=== PATIENT | male | born 1950 | race Caucasian/White ===

== ENCOUNTER 2018-09-11 05:37 | Inpatient (IN) | payer MEDICARE, BC ==
[~2018-09-11] VITALS: Ht 177.8 cm; Wt 75.6 kg
[2018-09-11] MEDS ORDERED: FOSAMAX 70MG TA70 MG PO (05:46)
[2018-09-11 06:02] LABS: BASO % 0.2 % (0.0-2.0); EOS % 0.1 % (0-4.0); GRAN # 13.9 (1.4-6.5); GRAN % 85.1 % (42.2-75.2); HEMATOCRIT 38.2 % (42.0-52.0); HEMOGLOBIN 13.3 g/dl (13.5-18.0); LYMPH % 5.8 % (20.0-51.0); MEAN CELL VOLUME 90 fl (80.0-100.0); MEAN CORPUSCULAR HEMOGLOBIN 31 pg (27.0-31.0); MEAN CORPUSCULAR HGB CONC 35 g/dl (33.0-37.0); MEAN PLATELET VOLUME 10.2 fl (7.4-10.4); MONO # 1.4 (0.1-0.6); MONO % 8.3 % (1.7-9.3); PLATELET COUNT 151 K/mm3 (130-400); RED BLOOD COUNT 4.25 M/mm3 (4.20-5.60); REDCELL DISTRIBUTION WIDTH-CV 12.4 % (11.5-14.5)
[2018-09-11 06:16] LABS: ALANINE AMINOTRANSFERASE 19 U/L (21-72); ALKALINE PHOSPHATASE 57 U/L (50-136); ANION GAP 7 mmol/L (7-16); AST,SGOT 22 U/L (15-37); BILIRUBIN,TOTAL 1.5 mg/dL (0.0-1.0); BLOOD UREA NITROGEN 16 mg/dL (9-20); CALCIUM 8.9 mg/dL (8.4-10.2); CARBON DIOXIDE 26 mmol/L (22-30); CHLORIDE 104 mmol/L (98-107); CREATININE, serum 0.88 mg/dL (0.66-1.25); GLUCOSE 152 mg/dL (74-106); POTASSIUM 4.1 mmol/L (3.4-5.0); SODIUM 137 mmol/L (137-145); TOTAL PROTEIN 7.3 gm/dL (6.4-8.2)
[2018-09-11 06:27] LABS: TROPONIN-I < 0.012 ng/mL (0.000-0.034)
[2018-09-11 06:32] LABS: MUCOUS Present /lpf; PH 6 (5-8); SQUAMOUS EPITHELIAL 0-2 /hpf; URINE APPEARANCE Clear; URINE BACTERIA None Seen /hpf; URINE BILIRUBIN Negative (NEGATIVE); URINE BLOOD Negative (NEGATIVE); URINE COLOR Amber; URINE GLUCOSE Negative (NEGATIVE); URINE KETONE Trace (NEGATIVE); URINE LEUKOCYTE ESTERASE Negative (NEGATIVE); URINE NITRATE Negative (NEGATIVE); URINE PROTEIN(semi-quant) 2+ (NEGATIVE); URINE RBC 0-2 /hpf; URINE UROBILINOGEN Negative (NEGATIVE)
[2018-09-11 12:57] LABS: COLLECTION METHOD CLEAN CATCH
--- NOTE | 2018-09-11 14:54 | NUR ---
Pt arrived to room 306 via cart with ED staff. Pt able to transfer from the cart to the floor bed with the assistance of one. Pt oriented to room and call light system. Will complete assessment. Pt is sitting up in the bed and he denies further needs. Call light within reach, will continue to monitor.
[2018-09-11 17:18] VITALS: BP 121/62; PULSE 76; TEMP 100
--- NOTE | 2018-09-11 19:17 | NUR ---
Since arriving to the floor the pt has been resting on and off. He has had a constant pain in his lower back; pain medication administered on NOV. Pt's has been at the bedside; all questions answered. Pt is resting quietly in the bed at this time and he denies further needs. Call light within reach. Report given to LG Doss.
--- NOTE | 2018-09-11 19:20 | NUR ---
Patient resting in bed, given IV morphine by LG Cuello at 1905. Assessment completed. States pain is controlled at this time with the morphine. Patient can have every 2 hours. Left great toe redenned. No other needs at this time.
[2018-09-11 21:03] VITALS: BP 130/65; PULSE 73; TEMP 100.4
--- NOTE | 2018-09-11 21:19 | NUR ---
Patient resting in bed, states most of the back pain is gone right now. C/O headache at this time- has been on/off all day. Does not want anything for pain at this time.
--- NOTE | 2018-09-11 23:30 | NUR ---
Patient sleeping, IVF infusing at this time.
[2018-09-12 00:18] VITALS: BP 138/60; PULSE 72; TEMP 99.8
--- NOTE | 2018-09-12 00:29 | NUR ---
Patient standing up with SBA, feeling nauseated. Given IV zofran. Returned to bed. States pain is manageable at this time and does not want anything. Patient states he will let this nurse know when he is ready for pain medication.
--- NOTE | 2018-09-12 02:38 | NUR ---
Blood culture results positive to staph. aureus. SIRENA Ledesma notified and orders to start 1 g vancomycin given. Discussed with patient administration of vanco. Patient aware. After beginning IV medication administration patient went back to sleep.
[2018-09-12 03:14] VITALS: BP 131/59; PULSE 66; TEMP 98
--- NOTE | 2018-09-12 05:35 | NUR ---
Patient slept on/off throughout the night. Pain controlled with 2 mg IV morphine. Administered twice this shift. Vanco was given last night for postiive blood culture of staph. aureus. Vitals stable, temperature trended down. No other needs at this time.
[2018-09-12 06:44] LABS: BASO % 0.1 % (0.0-2.0); GRAN # 11.1 (1.4-6.5); GRAN % 87.8 % (42.2-75.2); HEMOGLOBIN 12.2 g/dl (13.5-18.0); LYMPH # 0.5 (1.2-3.4); LYMPH % 4.1 % (20.0-51.0); MEAN CELL VOLUME 92 fl (80.0-100.0); MEAN CORPUSCULAR HEMOGLOBIN 32 pg (27.0-31.0); MEAN CORPUSCULAR HGB CONC 35 g/dl (33.0-37.0); MEAN PLATELET VOLUME 10.9 fl (7.4-10.4); MONO # 0.9 (0.1-0.6); MONO % 7.2 % (1.7-9.3); PLATELET COUNT 126 K/mm3 (130-400); RED BLOOD COUNT 3.85 M/mm3 (4.20-5.60); REDCELL DISTRIBUTION WIDTH-CV 12.4 % (11.5-14.5)
[2018-09-12 06:48] LABS: HEMATOCRIT 35.3 % (42.0-52.0)
[2018-09-12 06:59] LABS: CALCIUM 7.8 mg/dL (8.4-10.2); CREATININE, serum 0.92 mg/dL (0.66-1.25); POTASSIUM 4.2 mmol/L (3.4-5.0)
--- NOTE | 2018-09-12 07:18 | NUR ---
Resting in bed now. No pain or needs reported when asked, but the patient does moan when moving slightly on the bed. Will continue to ask about PRN pain medications. Currently, does not want anything for pain. The call light is in reach. Will continue to monitor.
[2018-09-12 07:19] VITALS: BP 126/57; PULSE 66; TEMP 98.6
[2018-09-12 07:38] LABS: C-REACTIVE PROTEIN 23.9 mg/dL (0.0-0.9)
--- NOTE | 2018-09-12 09:56 | NUR ---
LAWRENCE met with the patient and patient's , December, to discuss discharge plan. The patient lives in [place] with his . He reports independence with ADLs and has a cane and crutches. The patient's PCP is Dr. Bhumika Haywood and he receives his medications at the [facility]. He reports no difficulties obtaining his meds. The patient does not have advanced directives, but he states that he has the paperwork at home and plans to fill them out. The patient plans to return home with his upon discharge. No additional needs at this time.
--- NOTE | 2018-09-12 11:37 | NUR ---
Transferring to [facility] to be seen for further workup. INT cleaned and redressed and the is at the bedside. Plan to transport via EMS.
[2018-09-12 11:56] VITALS: BP 126/57; PULSE 66; TEMP 98.6
--- NOTE | 2018-09-12 12:12 | NUR ---
Initial visit; Patient and his thanked Carton Stenciler for looking in on him and wishing him well. Patient is being transferred to another hospital. Carton Stenciler will keep Pavel in her prayers.
--- NOTE | 2018-09-12 12:14 | NUR ---
Left via EMS at this time. to drive and met the patient.
== END 2018-09-12 12:14 | disposition short-term general hospital (02) | DRG 872 ==
LOC: COL.ER 05:37 → MEDICAL 09:14
PROVIDERS: Emergency Medicine; Physician Assistant; ADMIT Student in an Organized Health Care Education/Training Program
DX: A41.01 Sepsis due to Methicillin susceptible Staphylococcus aureus (principal); M46.57 Other infective spondylopathies, lumbosacral region; M10.9 Gout, unspecified; M1A.9XX0 Chronic gout, unspecified, without tophus (tophi); M81.0 Age-related osteoporosis without current pathological fracture; B95.61 Methicillin susceptible Staphylococcus aureus infection as the cause of diseases classified elsewhere
CPT/HCPCS: 99223-AI; 99239; A9585; G0378; G8978-GP; G8979-GP; J1170; J1650; J1885; J2270; J2360; J2405; J3370; J7030; J7050

== ENCOUNTER → 2018-09-22 | Outpatient (CLI) | payer MEDICARE, BC ==
[~2018-09-22] MED LIST: FOSAMAX 70MG TA70 MG PO
== END ==
LOC: COL.RAD 14:19
DX: M79.604 Pain in right leg (principal)

== ENCOUNTER 2022-02-05 17:30 | Inpatient (IN) | payer MEDICARE, BC ==
[~2022-02-05] VITALS: Ht 177.8 cm; Wt 87.6 kg
[2022-02-05] MEDS ORDERED: PRILOSEC 20MG20 MG PO (18:54)
[2022-02-05] MEDS ORDERED: MEDROL 4MG DOSPA4 MG PO (18:55)
[2022-02-05] MEDS ORDERED: ULTRAM 50MG TAB50 MG PO (18:55)
[2022-02-05] MEDS ORDERED: FLEXERIL 1010 MG/TAB PO (18:55)
[2022-02-05 19:24] LABS: COLLECTION METHOD CLEAN CATCH
[2022-02-05 19:27] LABS: HEMATOCRIT 44.9 % (42.0-52.0); HEMOGLOBIN 15.6 g/dl (13.5-18.0); MEAN CELL VOLUME 90 fl (80.0-100.0); MEAN CORPUSCULAR HEMOGLOBIN 31 pg (27-31); MEAN CORPUSCULAR HGB CONC 35 g/dl (33.0-37.0); MEAN PLATELET VOLUME 10.6 fl (7.4-10.4); PLATELET COUNT 235 K/mm3 (130-400); RED BLOOD COUNT 5.01 M/mm3 (4.20-5.60); REDCELL DISTRIBUTION WIDTH-CV 12.7 % (11.5-14.5)
[2022-02-05 19:32] LABS: MUCOUS Present (NOT PRESENT); PH 7 (5-8); SQUAMOUS EPITHELIAL 0-2 /hpf (0-10); URINE APPEARANCE Hazy (CLEAR/HAZY); URINE BACTERIA Occasional /hpf (NONE SEEN); URINE BILIRUBIN Negative (NEGATIVE); URINE BLOOD Negative (NEGATIVE); URINE COLOR Yellow (YELLOW); URINE GLUCOSE Negative (NEGATIVE); URINE KETONE Negative (NEGATIVE); URINE LEUKOCYTE ESTERASE Negative (NEGATIVE); URINE NITRATE Negative (NEGATIVE); URINE PROTEIN(semi-quant) 1+ (NEGATIVE); URINE UROBILINOGEN Negative (NEGATIVE)
[2022-02-05 19:48] LABS: ALBUMIN 3.3 gm/dL (3.4-4.8); BILIRUBIN,TOTAL 0.8 mg/dL (0.2-1.2); C-REACTIVE PROTEIN 23.93 mg/dL (0.00-0.50); CALCIUM 9.3 mg/dL (8.4-10.2); CREATININE, serum 1.04 mg/dL (0.72-1.25); POTASSIUM 4.2 mmol/L (3.5-4.5); TOTAL PROTEIN 7.7 gm/dL (6.2-8.1)
[2022-02-05 20:16] LABS: BAND 7 % (0-10); LYMPHOCYTE 16 % (20.0-51.0); NEUTROPHILS 73 % (42.0-75.2); PLATELET ESTIMATE NORMAL (NORMAL)
[2022-02-05 20:17] LABS: ERYTHROCYTE SEDIMENTATION RATE 37 mm/hr (0-30)
[2022-02-06 07:50] LABS: HEMATOCRIT 41.3 % (42.0-52.0); HEMOGLOBIN 14.3 g/dl (13.5-18.0); MEAN CELL VOLUME 90 fl (80.0-100.0); MEAN CORPUSCULAR HEMOGLOBIN 31 pg (27-31); MEAN CORPUSCULAR HGB CONC 35 g/dl (33.0-37.0); MEAN PLATELET VOLUME 10.4 fl (7.4-10.4); PLATELET COUNT 200 K/mm3 (130-400); REDCELL DISTRIBUTION WIDTH-CV 12.7 % (11.5-14.5)
[2022-02-06 08:09] LABS: CALCIUM 8.4 mg/dL (8.4-10.2); CREATININE, serum 0.83 mg/dL (0.72-1.25); POTASSIUM 4.4 mmol/L (3.5-4.5)
[2022-02-06 08:17] LABS: EOSINOPHIL 2 % (0-4); LYMPHOCYTE 8 % (20.0-51.0); PLATELET ESTIMATE NORMAL (NORMAL)
[2022-02-06 08:18] LABS: BAND 6 % (0-10)
[2022-02-06 08:19] LABS: NEUTROPHILS 78 % (42.0-75.2)
[2022-02-06 10:32] VITALS: BP 165/79; PULSE 56; TEMP 98.9
[2022-02-06] MEDS ORDERED: TYLENOL 500MG500 MG PO (10:55)
[2022-02-06] MEDS ORDERED: MOTRIN 800800 MG/TAB PO (10:56)
--- NOTE | 2022-02-06 11:05 | NUR ---
ADMISSION INTAKE AND ASSESSMENT COMPLETED. MED REC UPDATED. PT ORIENTED TO ROOM, AT BEDSIDE. PT COMPLAINING OF LOWER BACK, R HIPS, AND RLE PAIN. PRN MEDICATION GIVEN PER eMAR. CURRENTLY ON 2L VIA NC. REPORTS A RESTRICTED ROM IN RUE. DENIED ANY NEEDS AT THIS TIME. WILL CONTINUE TO MONITOR.
--- NOTE | 2022-02-06 13:26 | NUR ---
Vancomycin Initial Dosing Pharmacy Note Ordering provider: Eric Massey MD Indication/duration: Lumbar spinal facet infection Relevant comorbidities: h/o MSSA facet infection in 2018 LABS: SCr 0.83 Recommendation: Give Vancomycin 1.5 gm IV x1 loading dose, then Vancomycin 1 gm IV q8h. Pharmacy will continue to closely monitor. Loading dose: 1.5 grams Maintenance dose: 1 gram every 8 hours Trough goal: 15-20 ug/mL
[2022-02-06 15:12] VITALS: BP 168/79; PULSE 56; TEMP 97.6
[2022-02-06 20:17] VITALS: BP 151/74; PULSE 60; TEMP 97.6
--- NOTE | 2022-02-06 20:30 | NUR ---
Initial shift assessment done- VSS, states back pain 01/07-would like the second Roxicodone at this time, Up in room, steady on feet. Will be NPO after MN for MRI in am
--- NOTE | 2022-02-06 22:00 | NUR ---
Went to patients room- pt had pulled out IV- states it was all tangled up, had spilled his water all over the floor and bed- states he is in so much back pain 07/09-- Thao PEMBERTON called- New IV started to right hand- given Dilaudid IV and Zofran IV for nausea.
[2022-02-07 00:20] VITALS: BP 172/83; PULSE 62; TEMP 98.2
--- NOTE | 2022-02-07 00:45 | NUR ---
Pt remains restless, Up out of bed, walking in the chris- remains confused- thinks hes at home- back to bed, bed alarm on- denies pain ?but cannot seem to get comfortable-- will give Flexeril at this time.
[2022-02-07 03:47] VITALS: BP 155/72; PULSE 69; TEMP 99.3
--- NOTE | 2022-02-07 05:15 | NUR ---
Has been up and down all night- cant get comfortable- needs to standup,, VSS, voiding ok throughout the night-- NPO after MN, called scott PEMBERTON is aware of his confusion tonight- states ok to try the Ativan that is already ordered- will give Ativan at this time time to help with restlessness-
--- NOTE | 2022-02-07 06:10 | NUR ---
Pt still getting out of bed- moaning in pain- cant get comfortable- when asked pt denies need for pain meds- remains confused- thinks he is at home-- will give Dilaudid IV at this time to see if that is effective.
[2022-02-07 06:19] LABS: HEMATOCRIT 40.2 % (42.0-52.0); HEMOGLOBIN 13.5 g/dl (13.5-18.0); MEAN CELL VOLUME 92 fl (80.0-100.0); MEAN CORPUSCULAR HEMOGLOBIN 31 pg (27-31); MEAN CORPUSCULAR HGB CONC 34 g/dl (33.0-37.0); MEAN PLATELET VOLUME 10.7 fl (7.4-10.4); PLATELET COUNT 210 K/mm3 (130-400); RED BLOOD COUNT 4.37 M/mm3 (4.20-5.60); REDCELL DISTRIBUTION WIDTH-CV 12.3 % (11.5-14.5)
--- NOTE | 2022-02-07 07:21 | NUR ---
PT OFF OF UNIT FOR MRI AT THIS TIME.
[2022-02-07 07:24] LABS: EOSINOPHIL 1 % (0-4); LYMPHOCYTE 16 % (20.0-51.0); MYELOCYTE 1 % (0-0); NEUTROPHILS 77 % (42.0-75.2)
[2022-02-07 07:25] LABS: TEAR DROP CELLS 1+
--- NOTE | 2022-02-07 07:49 | NUR ---
PT BACK ON UNIT AT THIS TIME, RESTLESSLY LAYING IN BED. MORNING MEDICATIONS GIVEN. SHIFT ASSESSMENT COMPLETED. PT MOANING IN PAIN. PAIN MEDICATION GIVEN PER eMAR. CURRENTLY ON ROOM AIR. WILL CONTINUE TO MONITOR.
[2022-02-07 08:06] VITALS: BP 133/68; PULSE 57; TEMP 99.4
[2022-02-07 11:06] VITALS: BP 188/75; PULSE 67; TEMP 98.9
--- NOTE | 2022-02-07 11:28 | NUR ---
LAWRENCE met with the patient and his , December (ph#[phone]), to discuss discharge plan. The patient lives in [place] with his . He reports independence with ADLs and does not have any DME. The patient's PCP is Dr. Bhumika Haywood and he receives his medications from [facility]. The patient does not have a DPOA-HC, but his was interested in a form. LAWRENCE provided. The patient plans on returning home with his upon discharge. His states that the doctors are looking at possibly transferring him to [facility]. PT is recommending outpatient PT. December states that they would be interested in outpatient PT, once the patient is doing better. They would be interested in outpatient PT at [facility] on [address]. *Discharge plan: home with and outpatient PT*
[2022-02-07 13:20] LABS: HIV 1/2 Antibodies Non-Reactive; HIV-1p24 Antigen Non-Reactive
--- NOTE | 2022-02-07 13:30 | NUR ---
First visit from the upper extremity surgeon. No needs right now.
[2022-02-07 15:20] VITALS: BP 164/80; PULSE 73; TEMP 98.5
[2022-02-07 20:53] VITALS: BP 164/78; PULSE 75; TEMP 99.4
--- NOTE | 2022-02-07 21:46 | NUR ---
AAO TO SELF WAX AND WANE TO PLACE. AT BEDSIDE UPDATED ON PATIENT BEING TRANSFERRING TO [facility] GAVE REPORT TO RECIEVING NURSE. PROVIDED PAIN MEDICATION NEEDED THROUGHOUT SHIFT, PATIENT DOESN'T SEEM TO GET COMPLETE RELIEF FROM PAIN TOSSING AND TURNING IN BED TRYING TO PROVIDED WARM BLANKET TO BACK TO ASSIST WITH PATIENT REPOSITIONING WITH PILLOWS. PROVIDED MOUTH CARE THIS EVENING. ENCOURAGING FLUIDS WHILE AWAKE. CONTINUES ON IV ABX THERAPY. WILL CONTINUE TO MONITOR PATIENT. ETA OF TRANSPORATION 2300.
--- NOTE | 2022-02-07 22:45 | NUR ---
PATIENT TRANSFERRED VIA EMS ON STRETCHER PAPERWORK PROVIDED, PREMEDICATED PATIENT FOR PAIN PRIOR TO LEAVING. INFORMED OF ROOM NUMBER AT [facility] AND PATIENT BELONGINGS SENT HOME WITH .
== END 2022-02-07 22:45 | disposition short-term general hospital (02) | DRG 540 ==
LOC: COL.ER 17:30 → MEDICAL 22:48
PROVIDERS: Emergency Medicine; Internal Medicine; Physician Assistant; Student in an Organized Health Care Education/Training Program; ADMIT Family Medicine
DX: M46.36 Infection of intervertebral disc (pyogenic), lumbar region (principal); B37.0 Candidal stomatitis; N20.0 Calculus of kidney; K76.0 Fatty (change of) liver, not elsewhere classified; M71.38 Other bursal cyst, other site; K21.9 Gastro-esophageal reflux disease without esophagitis; M10.9 Gout, unspecified; D72.829 Elevated white blood cell count, unspecified; Z79.891 Long term (current) use of opiate analgesic
CPT/HCPCS: 99223-AI; 99233-AI; 99239; A9575; J0696; J1170; J1450; J1650; J1885; J2060; J2270; J2405; J3370; J7030; J7050; Q9967

== ENCOUNTER 2022-03-05 13:56 | Outpatient (CLI) | payer MEDICARE, BC ==
[~2022-03-05 13:56] MED LIST changes: +FLEXERIL 1010 MG/TAB PO; +MEDROL 4MG DOSPA4 MG PO; +MOTRIN 800800 MG/TAB PO; +PRILOSEC 20MG20 MG PO; +TYLENOL 500MG500 MG PO; +ULTRAM 50MG TAB50 MG PO
[2022-03-05] MEDS ORDERED: FLOMAX 0.40.4 MG/CAP PO (14:05)
[2022-03-05] MEDS ORDERED: ROCEPHIN 2GM VIAL21 IJ (14:06)
[2022-03-05 14:07] VITALS: BP 156/77; PULSE 75; TEMP 97.7
[2022-03-05] MEDS ORDERED: NORVASC 5MG5 MG/TAB PO (14:07)
--- NOTE | 2022-03-05 14:15 | NUR ---
Patient here for a PICC evaluation. PICC intact left upper arm. Flushed with 60ml normal saline without difficulty or resistance. Unable to obtain a blood return. Performed arm manipulation along with coughing and still no blood return noted. EU nurse contacted physician and to obtain orders. Chest x ray done. PICC tip location in lower SVC. EU RN will instil cath-donnie.
[2022-03-05 16:01] LABS: BASO % 0.5 % (0.0-2.0); EOS # 0.3 K/mm3 (0.0-0.7); GRAN # 3.3 K/mm3 (1.4-6.5); GRAN % 52.6 % (42.2-75.2); LYMPH % 31.6 % (20.0-51.0); MEAN CELL VOLUME 89 fl (80.0-100.0); MEAN CORPUSCULAR HEMOGLOBIN 32 pg (27-31); MEAN CORPUSCULAR HGB CONC 36 g/dl (33.0-37.0); MEAN PLATELET VOLUME 9.3 fl (7.4-10.4); MONO # 0.7 K/mm3 (0.1-0.6); MONO % 10.5 % (1.7-9.3); PLATELET COUNT 229 K/mm3 (130-400); RED BLOOD COUNT 3.78 M/mm3 (4.20-5.60); REDCELL DISTRIBUTION WIDTH-CV 14.2 % (11.5-14.5)
[2022-03-05 16:03] LABS: HEMATOCRIT 33.5 % (42.0-52.0)
--- NOTE | 2022-03-05 16:10 | NUR ---
Blood return obtained from PICC line following 30 min dwell time of cathflo. Line flushed per protocol. Labs drawn per orders. Pt ambulates out of dept with upon completion.
[2022-03-05 16:18] LABS: ALBUMIN 3.2 gm/dL (3.4-4.8); BILIRUBIN,TOTAL 0.4 mg/dL (0.2-1.2); C-REACTIVE PROTEIN 0.31 mg/dL (0.00-0.50); CALCIUM 9.2 mg/dL (8.4-10.2); CREATININE, serum 0.81 mg/dL (0.72-1.25); POTASSIUM 3.9 mmol/L (3.5-4.5); TOTAL PROTEIN 7.7 gm/dL (6.2-8.1)
== END 2022-03-05 16:30 | disposition home or self-care (01) ==
LOC: EUO 13:56
PROVIDERS: Family Medicine
DX: Z45.2 Encounter for adjustment and management of vascular access device (principal); M60.08 Infective myositis, other site; M86.9 Osteomyelitis, unspecified
CPT/HCPCS: J2997

== ENCOUNTER → 2022-11-07 | Outpatient (CLI) | payer MEDICARE, BC ==
[~2022-11-07] MED LIST changes: +FLOMAX 0.40.4 MG/CAP PO; +NORVASC 5MG5 MG/TAB PO; +ROCEPHIN 2GM VIAL21 IJ
[2022-11-07 13:17] LABS: BAND 16 % (0-10); EOSINOPHIL 1 % (0-4); HEMATOCRIT 39.6 % (42.0-52.0); HEMOGLOBIN 13.2 g/dl (13.5-18.0); LYMPHOCYTE 19 % (20.0-51.0); MEAN CELL VOLUME 95 fl (80.0-100.0); MEAN CORPUSCULAR HEMOGLOBIN 32 pg (27-31); MEAN CORPUSCULAR HGB CONC 33 g/dl (33.0-37.0); MEAN PLATELET VOLUME 10.8 fl (7.4-10.4); PLATELET COUNT 110 K/mm3 (130-400); RED BLOOD COUNT 4.17 M/mm3 (4.20-5.60); REDCELL DISTRIBUTION WIDTH-CV 14.2 % (11.5-14.5)
[2022-11-07 13:18] LABS: METAMYELOCYTE 5 % (0-0); NEUTROPHILS 55 % (42.0-75.2); PLATELET ESTIMATE NORMAL (NORMAL)
[2022-11-07 13:22] LABS: ALBUMIN 2.7 gm/dL (3.4-4.8); BILIRUBIN,TOTAL 0.4 mg/dL (0.2-1.2); CALCIUM 8.7 mg/dL (8.4-10.2); CREATININE, serum 0.98 mg/dL (0.72-1.25); THYROID STIMULATING HORMONE 0.898 uIU/mL (0.350-4.940); TOTAL PROTEIN 5.4 gm/dL (6.2-8.1)
== END ==
LOC: ZCOL.LAB 12:21
PROVIDERS: Psychiatry & Neurology Neurology
DX: C71.9 Malignant neoplasm of brain, unspecified (principal)

== ENCOUNTER → 2022-11-26 | Outpatient (CLI) | payer MEDICARE, BC ==
[2022-11-26 19:26] LABS: HEMOGLOBIN 12.9 g/dl (13.5-18.0); MEAN CELL VOLUME 92 fl (80.0-100.0); MEAN CORPUSCULAR HEMOGLOBIN 33 pg (27-31); MEAN CORPUSCULAR HGB CONC 35 g/dl (33.0-37.0); MEAN PLATELET VOLUME 10.8 fl (7.4-10.4); PLATELET COUNT 193 K/mm3 (130-400); RED BLOOD COUNT 3.96 M/mm3 (4.20-5.60); REDCELL DISTRIBUTION WIDTH-CV 14.6 % (11.5-14.5)
[2022-11-26 19:27] LABS: HEMATOCRIT 36.4 % (42.0-52.0)
[2022-11-26 19:38] LABS: ALBUMIN 3.1 gm/dL (3.4-4.8); BILIRUBIN,TOTAL 0.5 mg/dL (0.2-1.2); CREATININE, serum 1.29 mg/dL (0.72-1.25); POTASSIUM 4.6 mmol/L (3.5-4.5)
[2022-11-26 20:06] LABS: BAND 21 % (0-10); EOSINOPHIL 1 % (0-4); LYMPHOCYTE 6 % (20.0-51.0); METAMYELOCYTE 4 % (0-0); MYELOCYTE 3 % (0-0); NEUTROPHILS 60 % (42.0-75.2)
[2022-11-26 20:07] LABS: ANISOCYTOSIS 1+; PLATELET ESTIMATE NORMAL (NORMAL)
== END ==
LOC: COL.LAB 18:18
PROVIDERS: Family Medicine
DX: C71.1 Malignant neoplasm of frontal lobe (principal)

== ENCOUNTER → 2022-11-28 | Outpatient (REF) | payer MEDICARE, BC ==
[2022-11-28 13:05] LABS: ALBUMIN 3.3 gm/dL (3.4-4.8); BILIRUBIN,TOTAL 0.5 mg/dL (0.2-1.2); CREATININE, serum 0.92 mg/dL (0.72-1.25); POTASSIUM 4.1 mmol/L (3.5-4.5); TOTAL PROTEIN 6.5 gm/dL (6.2-8.1)
[2022-11-28 13:18] LABS: HEMATOCRIT 38.8 % (42.0-52.0); HEMOGLOBIN 13.5 g/dl (13.5-18.0); MEAN CELL VOLUME 94 fl (80.0-100.0); MEAN CORPUSCULAR HEMOGLOBIN 33 pg (27-31); MEAN CORPUSCULAR HGB CONC 35 g/dl (33.0-37.0); MEAN PLATELET VOLUME 10.5 fl (7.4-10.4); PLATELET COUNT 190 K/mm3 (130-400); RED BLOOD COUNT 4.15 M/mm3 (4.20-5.60); REDCELL DISTRIBUTION WIDTH-CV 15.1 % (11.5-14.5)
[2022-11-28 13:43] LABS: ANISOCYTOSIS 1+; LYMPHOCYTE 28 % (20.0-51.0); NEUTROPHILS 64 % (42.0-75.2); PLATELET ESTIMATE NORMAL (NORMAL)
== END ==
LOC: ZCOL.LAB 00:27 → EDSTATUS 13:22 → ZCOL.LAB 13:23
PROVIDERS: Family Medicine
DX: C71.9 Malignant neoplasm of brain, unspecified (principal); I10 Essential (primary) hypertension; Z79.899 Other long term (current) drug therapy